=== PATIENT | male | born 1980 | race African-American/Black ===

== ENCOUNTER 2017-07-17 02:46 | Inpatient (IN) | payer OTHER ==
[~2017-07-17] VITALS: Ht 177.8 cm; Wt 73.3 kg
[2017-07-17 05:12] LABS: HEMOGLOBIN 12.5 g/dL (13.7-18.0); WHITE BLOOD COUNT 9.2 x10^3/uL (3.4-10)
[2017-07-17 05:48] LABS: ABG COLLECTION SITE NOT DOCUMENTED
[2017-07-17 05:51] LABS: ASPARTATE AMINO TRANSFERASE 18 U/L (15-37); BLOOD UREA NITROGEN 5 mg/dL (7-18)
[2017-07-17 05:52] LABS: ACETAMINOPHEN < 2 mcg/mL (10-30)
[2017-07-17 05:55] LABS: DAU SCREEN DISCLAIMER
[2017-07-17] MEDS ORDERED: PROPOFOL 100 ML IV ONE (06:12)
[2017-07-17] MEDS ORDERED: PROPOFOL 100 ML IV PRN (06:30)
[2017-07-17] MEDS ORDERED: SODIUM CHLORIDE 0.9% 1,000 ML IV ONE (06:48)
[2017-07-17] MEDS ORDERED: SODIUM CHLORIDE FLUSH 10ML SYR IVF PRN (07:00)
[2017-07-17] MEDS ORDERED: LORazepam 10 MG in SODIUM CHLORIDE 0.9% 245 ML IV PRN (07:30)
[2017-07-17] MEDS ORDERED: HALOPERIDOL 5 MG/ML ONE (07:30)
[2017-07-17] MEDS ORDERED: DIAZEPAM 5 MG/ML, 2ML IV SCH (07:30)
[2017-07-17] MEDS ORDERED: LORazepam 2 MG/ML, 1ML ONE (07:30)
[2017-07-17] MEDS ORDERED: NS + 20MEQ KCL 1,000 ML IV SCH (07:36)
[2017-07-17] MEDS ORDERED: LABETALOL 5MG/ML, 20ML IVPush PRN ×2 (08:00→20:00)
[2017-07-17] MEDS ORDERED: SENNOSIDES 8.8 MG/5 ML ORAL SOL NG PRN ×2 (08:00→20:00)
[2017-07-17] MEDS ORDERED: HALOPERIDOL 5 MG/ML IV ONE ×2 (08:00→10:00)
[2017-07-17] MEDS ORDERED: BISACODYL 10 MG SUPP PR PRN ×2 (08:00→20:00)
[2017-07-17] MEDS ORDERED: LIDOCAINE-MPF 1%, 2ML ENDO PRN (08:00)
[2017-07-17] MEDS ORDERED: LORazepam 2 MG/ML, 1ML IVPush ONE (08:00)
[2017-07-17] MEDS ORDERED: MORPHINE SULFATE 4 MG/ML, 1ML IVPush PRN (08:00)
[2017-07-17] MEDS ORDERED: LACTULOSE 20 GM/30 ML UDC NG PRN ×2 (08:00→20:00)
[2017-07-17] MEDS ORDERED: ACETAMINOPHEN 325 MG TABLET PO PRN ×2 (08:00→20:00)
[2017-07-17] MEDS ORDERED: PHARMACY MAY ADJ FOR RENAL FX MC SCH (08:00)
[2017-07-17] MEDS ORDERED: POLYETHYLENE GLYCOL 17 GM PACKET PO PRN ×2 (08:00→20:00)
[2017-07-17] MEDS ORDERED: TEMAZEPAM 15 MG CAPSULE PO PRN (08:00)
[2017-07-17] MEDS ORDERED: SENNA/DOCUSATE TABLET NG PRN ×2 (08:00→20:00)
[2017-07-17] MEDS ORDERED: FAMOTIDINE 20 MG/2 ML IV SCH (08:00)
[2017-07-17] MEDS ORDERED: OXYcodone IR 5MG TABLET PO PRN (08:00)
[2017-07-17] MEDS: PANTOPRAZOLE 40 MG IV IVPush SCH (09:41)
[2017-07-17] MEDS: ENOXAPARIN 40 MG/0.4 ML SQ SCH (09:53)
[2017-07-17] MEDS: QUETIAPINE 25MG TABLET PO SCH ×3 (09:53→23:07)
[2017-07-17] MEDS ORDERED: DIAZEPAM 5 MG TABLET PO ONE (10:00)
[2017-07-17] MEDS ORDERED: DIAZEPAM 10 MG TABLET PO ONE (10:00)
[2017-07-17] MEDS ORDERED: HALOPERIDOL 5 MG/ML IM PRN (10:00)
[2017-07-17] MEDS: POTASSIUM CHLORIDE 20 MEQ, MAGNESIUM SULFATE 1 GM, THIAMINE 100 MG, FOLIC ACID 1 MG, MV... IV SCH (10:39)
[2017-07-17] MEDS: LEVETIRACETAM 1,000 MG in SODIUM CHLORIDE 0.9% 100 ML IV SCH ×2 (10:40→20:18)
[2017-07-17] MEDS: SENNA/DOCUSATE TABLET PO SCH (10:51)
[2017-07-17] MEDS: ALBUTEROL/IPRATROPIUM 2.5MG/0.5MG, 3 ML INLINE SCH ×5 (11:48→21:58)
[2017-07-17] MEDS: DEXAMETHASONE 4 MG/ML, 1ML IVPush SCH ×3 (13:23→21:12)
[2017-07-17] MEDS: AMPICILLIN/SULBACTAM 3 GM in SODIUM CHLORIDE 0.9% 100 ML IV SCH ×2 (13:24→20:29)
[2017-07-17] MEDS ORDERED: DIAZEPAM 5 MG/ML, 10ML VIAL IV SCH (13:30)
[2017-07-17] MEDS: PROPOFOL 100 ML IV PRN ×3 (14:07→20:32)
[2017-07-17 15:33] VITALS: BP 122/80
[2017-07-17] MEDS: DIAZEPAM 5 MG/ML, 10ML VIAL IV SCH ×2 (16:45→21:15)
[2017-07-17] MEDS ORDERED: MIDAZOLAM 1 MG/ML, 5ML ONE (16:46)
[2017-07-17] MEDS ORDERED: PROPOFOL 10 MG/ML, 20ML ONE (16:46)
[2017-07-17] MEDS ORDERED: SUCCINYLCHOLINE 20 MG/ML, 10ML ONE (16:46)
[2017-07-17] MEDS ORDERED: PROPOFOL 10 MG/ML, 50ML ONE (16:46)
[2017-07-17] MEDS ORDERED: ETOMIDATE 40 MG/20 ML ONE (16:46)
[2017-07-17] MEDS: DIAZEPAM 5 MG/ML, 2ML IV PRN (18:17)
[2017-07-17] MEDS: FENTANYL PF 100 MCG/2ML IVPush PRN (20:07)
[2017-07-17] MEDS: LORazepam 2 MG/ML, 1ML IVPush PRN (20:07)
[2017-07-17] MEDS: NS + 20MEQ KCL 1,000 ML IV SCH (20:21)
[2017-07-17] MEDS: SCOPOLAMINE PATCH, 1MG PATCH.TD72 TD SCH (21:01)
[2017-07-17] MEDS ORDERED: MAGNESIUM SULFATE 4 GM in SODIUM CHLORIDE 0.9% 100 ML IV ONE (23:00)
[2017-07-17] MEDS ORDERED: MAGNESIUM SULFATE PMX 4GM/100M 100 ML IV ONE (23:30)
[2017-07-18] MEDS: PROPOFOL 100 ML IV PRN ×5 (00:28→19:58)
[2017-07-18] MEDS: DIAZEPAM 5 MG/ML, 10ML VIAL IV SCH ×6 (01:32→21:35)
[2017-07-18] MEDS: ALBUTEROL/IPRATROPIUM 2.5MG/0.5MG, 3 ML INLINE SCH ×6 (02:17→22:56)
[2017-07-18] MEDS: DIAZEPAM 5 MG/ML, 2ML IV PRN (03:19)
[2017-07-18 04:06] LABS: ABG COLLECTION SITE RIGHT RADIAL; COLLATERAL CIRCULATION TESTING NORMAL
[2017-07-18] MEDS: NS + 20MEQ KCL 1,000 ML IV SCH ×2 (04:10→19:38)
[2017-07-18] MEDS: AMPICILLIN/SULBACTAM 3 GM in SODIUM CHLORIDE 0.9% 100 ML IV SCH ×3 (04:10→21:31)
[2017-07-18] MEDS: DEXAMETHASONE 4 MG/ML, 1ML IVPush SCH ×3 (04:10→17:29)
[2017-07-18 05:19] VITALS: BP 117/76
[2017-07-18 06:05] LABS: HEMATOCRIT 31.7 % (39.2-51.8); WHITE BLOOD COUNT 10.8 x10^3/uL (3.4-10)
[2017-07-18 06:17] LABS: ASPARTATE AMINO TRANSFERASE 21 U/L (15-37); BLOOD UREA NITROGEN 4 mg/dL (7-18)
[2017-07-18] MEDS: PANTOPRAZOLE 40 MG IV IVPush SCH (07:43)
[2017-07-18] MEDS: LEVETIRACETAM 1,000 MG in SODIUM CHLORIDE 0.9% 100 ML IV SCH ×2 (07:53→20:07)
[2017-07-18] MEDS: ENOXAPARIN 40 MG/0.4 ML SQ SCH (07:57)
[2017-07-18] MEDS: QUETIAPINE 25MG TABLET PO SCH ×2 (07:57→17:29)
[2017-07-18] MEDS: SENNA/DOCUSATE TABLET PO SCH (08:09)
[2017-07-18] MEDS: POTASSIUM CHLORIDE 20 MEQ, MAGNESIUM SULFATE 1 GM, THIAMINE 100 MG, FOLIC ACID 1 MG, MV... IV SCH (09:21)
[2017-07-18] MEDS ORDERED: QUETIAPINE 25MG TABLET PO ONE (09:30)
[2017-07-18] MEDS: LORazepam 2 MG/ML, 1ML IVPush PRN ×2 (11:36→23:41)
[2017-07-18] MEDS ORDERED: LABETALOL 5MG/ML, 20ML IVPush PRN (17:30)
[2017-07-18] MEDS ORDERED: PHARMACY MAY ADJ FOR RENAL FX MC SCH (17:30)
[2017-07-18] MEDS ORDERED: BISACODYL 10 MG SUPP PR PRN (17:30)
[2017-07-18] MEDS ORDERED: LACTULOSE 20 GM/30 ML UDC NG PRN (17:30)
[2017-07-18] MEDS ORDERED: POLYETHYLENE GLYCOL 17 GM PACKET PO PRN (17:30)
[2017-07-18] MEDS ORDERED: ACETAMINOPHEN 325 MG TABLET PO PRN (17:30)
[2017-07-18] MEDS ORDERED: OXYcodone IR 5MG TABLET PO PRN (17:30)
[2017-07-18] MEDS ORDERED: FUROSEMIDE 20 MG/2 ML IV ONE (18:00)
[2017-07-19] MEDS: PROPOFOL 100 ML IV PRN ×6 (00:55→22:49)
[2017-07-19] MEDS: QUETIAPINE 25MG TABLET PO SCH ×3 (01:04→17:54)
[2017-07-19] MEDS: DIAZEPAM 5 MG/ML, 10ML VIAL IV SCH ×6 (01:05→22:31)
[2017-07-19] MEDS: ALBUTEROL/IPRATROPIUM 2.5MG/0.5MG, 3 ML INLINE SCH ×6 (03:19→23:27)
[2017-07-19] MEDS: NS + 20MEQ KCL 1,000 ML IV SCH (03:21)
[2017-07-19 04:00] VITALS: BP 122/80
[2017-07-19 04:27] LABS: HEMATOCRIT 33.9 % (39.2-51.8); HEMOGLOBIN 11.1 g/dL (13.7-18.0); WHITE BLOOD COUNT 11.1 x10^3/uL (3.4-10)
[2017-07-19 04:40] LABS: BLOOD UREA NITROGEN 6 mg/dL (7-18)
[2017-07-19] MEDS: AMPICILLIN/SULBACTAM 3 GM in SODIUM CHLORIDE 0.9% 100 ML IV SCH ×3 (05:23→21:10)
[2017-07-19 05:42] LABS: ABG COLLECTION SITE LEFT RADIAL; COLLATERAL CIRCULATION TESTING NORMAL
[2017-07-19] MEDS: LEVETIRACETAM 1,000 MG in SODIUM CHLORIDE 0.9% 100 ML IV SCH ×2 (07:57→19:57)
[2017-07-19] MEDS ORDERED: LORazepam 2 MG/ML, 1ML IVPush ONE (08:00)
[2017-07-19] MEDS ORDERED: MIDAZOLAM 1 MG/ML, 5ML ONE ×3 (08:01→13:29)
[2017-07-19] MEDS: PANTOPRAZOLE 40 MG IV IVPush SCH (08:09)
[2017-07-19] MEDS: ENOXAPARIN 40 MG/0.4 ML SQ SCH (08:09)
[2017-07-19] MEDS ORDERED: MIDAZOLAM 1 MG/ML, 5ML IVPush PRN (08:30)
[2017-07-19] MEDS: SENNA/DOCUSATE TABLET PO SCH (09:38)
[2017-07-19] MEDS: MIDAZOLAM 10MG/2 ML IVPush PRN ×2 (11:36→13:36)
[2017-07-19] MEDS: FOLIC ACID 1 MG TABLET PO SCH (13:52)
[2017-07-19] MEDS: THIAMINE 100MG TABLET PO SCH (13:52)
[2017-07-19] MEDS: MIDAZOLAM HCL 25 MG in SODIUM CHLORIDE 0.9% 245 ML IV PRN (15:13)
[2017-07-20] MEDS: MIDAZOLAM HCL 25 MG in SODIUM CHLORIDE 0.9% 245 ML IV PRN ×6 (00:08→18:17)
[2017-07-20] MEDS: DIAZEPAM 5 MG/ML, 10ML VIAL IV SCH ×6 (01:56→22:28)
[2017-07-20] MEDS: QUETIAPINE 25MG TABLET PO SCH ×3 (01:56→17:41)
[2017-07-20] MEDS: PROPOFOL 100 ML IV PRN ×6 (03:19→22:44)
[2017-07-20 04:00] VITALS: BP 121/73
[2017-07-20] MEDS: ALBUTEROL/IPRATROPIUM 2.5MG/0.5MG, 3 ML INLINE SCH ×2 (04:05→07:18)
[2017-07-20 04:38] LABS: ABG COLLECTION SITE RIGHT RADIAL; COLLATERAL CIRCULATION TESTING NORMAL
[2017-07-20 04:38] LABS: HEMATOCRIT 33.7 % (39.2-51.8); HEMOGLOBIN 11.4 g/dL (13.7-18.0); WHITE BLOOD COUNT 10.6 x10^3/uL (3.4-10)
[2017-07-20] MEDS: AMPICILLIN/SULBACTAM 3 GM in SODIUM CHLORIDE 0.9% 100 ML IV SCH ×3 (04:45→19:45)
[2017-07-20 04:46] LABS: BLOOD UREA NITROGEN 8 mg/dL (7-18)
[2017-07-20] MEDS: LORazepam 2 MG/ML, 1ML IVPush PRN (08:02)
[2017-07-20] MEDS: PANTOPRAZOLE 40 MG IV IVPush SCH (08:07)
[2017-07-20] MEDS: ENOXAPARIN 40 MG/0.4 ML SQ SCH (08:07)
[2017-07-20] MEDS: LEVETIRACETAM 1,000 MG in SODIUM CHLORIDE 0.9% 100 ML IV SCH ×2 (08:07→20:02)
[2017-07-20] MEDS ORDERED: MAGNESIUM SULFATE PMX 2GM/50ML 50 ML IV ONE (08:30)
[2017-07-20] MEDS ORDERED: MIDAZOLAM 1 MG/ML, 5ML ONE (09:50)
[2017-07-20] MEDS: MIDAZOLAM 10MG/2 ML IVPush PRN (09:51)
[2017-07-20] MEDS: MULTIVITAMIN 1 TABLET PO SCH (09:59)
[2017-07-20] MEDS: POTASSIUM CHLORIDE 10% 40 MEQ/30 ML UDC NG SCH ×2 (09:59→19:46)
[2017-07-20] MEDS: THIAMINE 100MG TABLET PO SCH (10:00)
[2017-07-20] MEDS: SENNA/DOCUSATE TABLET PO SCH (10:00)
[2017-07-20] MEDS: FOLIC ACID 1 MG TABLET PO SCH (10:00)
[2017-07-20] MEDS ORDERED: ALBUTEROL/IPRATROPIUM 2.5MG/0.5MG, 3 ML INLINE PRN (12:00)
[2017-07-20] MEDS: SCOPOLAMINE PATCH, 1MG PATCH.TD72 TD SCH (19:45)
[2017-07-20] MEDS: MIDAZOLAM HCL 100 MG in SODIUM CHLORIDE 0.9% 230 ML IV PRN (20:43)
[2017-07-20] MEDS: FENTANYL PF 100 MCG/2ML IVPush PRN (22:32)
[2017-07-21] MEDS: QUETIAPINE 25MG TABLET PO SCH ×4 (00:35→23:59)
[2017-07-21] MEDS: PROPOFOL 100 ML IV PRN ×7 (02:31→23:58)
[2017-07-21] MEDS: DIAZEPAM 5 MG/ML, 10ML VIAL IV SCH ×6 (03:43→23:58)
[2017-07-21] MEDS: MIDAZOLAM HCL 100 MG in SODIUM CHLORIDE 0.9% 230 ML IV PRN ×3 (03:43→21:49)
[2017-07-21 04:00] VITALS: BP 113/69
[2017-07-21] MEDS: FENTANYL PF 100 MCG/2ML IVPush PRN ×4 (04:25→20:06)
[2017-07-21] MEDS: AMPICILLIN/SULBACTAM 3 GM in SODIUM CHLORIDE 0.9% 100 ML IV SCH ×3 (04:27→21:46)
[2017-07-21 04:50] LABS: ABG COLLECTION SITE LEFT RADIAL; COLLATERAL CIRCULATION TESTING NORMAL; HEMATOCRIT 35.3 % (39.2-51.8); HEMOGLOBIN 12.2 g/dL (13.7-18.0); WHITE BLOOD COUNT 10.4 x10^3/uL (3.4-10)
[2017-07-21 05:11] LABS: BLOOD UREA NITROGEN 8 mg/dL (7-18)
[2017-07-21] MEDS ORDERED: MAGNESIUM SULFATE PMX 2GM/50ML 50 ML IV ONE (06:30)
[2017-07-21] MEDS: LEVETIRACETAM 1,000 MG in SODIUM CHLORIDE 0.9% 100 ML IV SCH ×2 (07:32→19:30)
[2017-07-21] MEDS: PANTOPRAZOLE 40 MG IV IVPush SCH (07:32)
[2017-07-21] MEDS: ENOXAPARIN 40 MG/0.4 ML SQ SCH (07:39)
[2017-07-21] MEDS: POTASSIUM CHLORIDE 10% 40 MEQ/30 ML UDC NG SCH ×2 (09:22→20:06)
[2017-07-21] MEDS: MULTIVITAMIN 1 TABLET PO SCH (09:23)
[2017-07-21] MEDS: SENNA/DOCUSATE TABLET PO SCH (09:23)
[2017-07-21] MEDS: THIAMINE 100MG TABLET PO SCH (09:23)
[2017-07-21] MEDS: FOLIC ACID 1 MG TABLET PO SCH (09:23)
[2017-07-21] MEDS ORDERED: SODIUM CHLORIDE 0.9%, 500ML IVBOLUS ONE (13:00)
[2017-07-21] MEDS: LORazepam 2 MG/ML, 1ML IVPush PRN (16:24)
[2017-07-22] MEDS: FENTANYL PF 100 MCG/2ML IVPush PRN ×4 (00:37→06:26)
[2017-07-22] MEDS: LORazepam 2 MG/ML, 1ML IVPush PRN (00:37)
[2017-07-22] MEDS ORDERED: MIDAZOLAM 1 MG/ML, 5ML ONE (02:17)
[2017-07-22] MEDS: MIDAZOLAM 1 MG/ML, 5ML IVPush PRN ×3 (02:24→06:26)
[2017-07-22] MEDS: PROPOFOL 100 ML IV PRN ×2 (03:36→08:11)
[2017-07-22] MEDS: DIAZEPAM 5 MG/ML, 10ML VIAL IV SCH ×6 (03:36→23:30)
[2017-07-22 04:00] VITALS: BP 100/60
[2017-07-22] MEDS: AMPICILLIN/SULBACTAM 3 GM in SODIUM CHLORIDE 0.9% 100 ML IV SCH ×3 (04:28→20:27)
[2017-07-22 04:36] LABS: ABG COLLECTION SITE LEFT RADIAL; COLLATERAL CIRCULATION TESTING NORMAL
[2017-07-22 04:45] LABS: HEMATOCRIT 33.5 % (39.2-51.8); HEMOGLOBIN 11.3 g/dL (13.7-18.0); WHITE BLOOD COUNT 10.4 x10^3/uL (3.4-10)
[2017-07-22 04:54] LABS: BLOOD UREA NITROGEN 7 mg/dL (7-18)
[2017-07-22] MEDS ORDERED: MAGNESIUM SULFATE PMX 4GM/100M 100 ML IV ONE (07:00)
[2017-07-22] MEDS: LEVETIRACETAM 1,000 MG in SODIUM CHLORIDE 0.9% 100 ML IV SCH ×2 (08:10→19:29)
[2017-07-22] MEDS: MIDAZOLAM HCL 100 MG in SODIUM CHLORIDE 0.9% 230 ML IV PRN (08:11)
[2017-07-22] MEDS: THIAMINE 100MG TABLET PO SCH (08:12)
[2017-07-22] MEDS: SENNA/DOCUSATE TABLET PO SCH (08:12)
[2017-07-22] MEDS: QUETIAPINE 25MG TABLET PO SCH (08:12)
[2017-07-22] MEDS: MULTIVITAMIN 1 TABLET PO SCH (08:12)
[2017-07-22] MEDS: FOLIC ACID 1 MG TABLET PO SCH (08:12)
[2017-07-22] MEDS: POTASSIUM CHLORIDE 10% 40 MEQ/30 ML UDC NG SCH ×2 (08:13→20:27)
[2017-07-22] MEDS: PANTOPRAZOLE 40 MG IV IVPush SCH (08:13)
[2017-07-22] MEDS: ENOXAPARIN 40 MG/0.4 ML SQ SCH (08:13)
[2017-07-23] MEDS: DIAZEPAM 5 MG/ML, 10ML VIAL IV SCH ×2 (03:42→08:46)
[2017-07-23] MEDS: AMPICILLIN/SULBACTAM 3 GM in SODIUM CHLORIDE 0.9% 100 ML IV SCH ×3 (04:26→20:38)
[2017-07-23 04:45] LABS: ABG COLLECTION SITE LEFT RADIAL; COLLATERAL CIRCULATION TESTING NORMAL; FIO2 ROOM AIR %; HEMATOCRIT 35.4 % (39.2-51.8); HEMOGLOBIN 12.2 g/dL (13.7-18.0); WHITE BLOOD COUNT 11.2 x10^3/uL (3.4-10)
[2017-07-23 04:56] LABS: BLOOD UREA NITROGEN 8 mg/dL (7-18)
[2017-07-23] MEDS: ENOXAPARIN 40 MG/0.4 ML SQ SCH (08:46)
[2017-07-23] MEDS: LEVETIRACETAM 1,000 MG in SODIUM CHLORIDE 0.9% 100 ML IV SCH (08:46)
[2017-07-23] MEDS: POTASSIUM CHLORIDE 10% 40 MEQ/30 ML UDC NG SCH (08:47)
[2017-07-23] MEDS: SENNA/DOCUSATE TABLET PO SCH (08:47)
[2017-07-23] MEDS: MULTIVITAMIN 1 TABLET PO SCH (08:47)
[2017-07-23] MEDS: FOLIC ACID 1 MG TABLET PO SCH (08:48)
[2017-07-23] MEDS: THIAMINE 100MG TABLET PO SCH (08:48)
[2017-07-23] MEDS ORDERED: DIAZEPAM 5 MG/ML, 2ML IV PRN (09:00)
[2017-07-23] MEDS: CHLORDIAZEPOXIDE 25 MG CAPSULE PO SCH ×2 (09:25→20:37)
[2017-07-23] MEDS ORDERED: LACTULOSE 20 GM/30 ML UDC NG PRN (13:00)
[2017-07-23 13:22] VITALS: BP 110/75
[2017-07-23 18:42] VITALS: BP 111/72
[2017-07-24 01:04] VITALS: BP 117/76
[2017-07-24] MEDS: AMPICILLIN/SULBACTAM 3 GM in SODIUM CHLORIDE 0.9% 100 ML IV SCH (04:58)
[2017-07-24 06:58] VITALS: BP 105/69
[2017-07-24] MEDS ORDERED: ENOXAPARIN 40 MG/0.4 ML SQ SCH (08:00)
[2017-07-24] MEDS: MULTIVITAMIN 1 TABLET PO SCH (08:45)
[2017-07-24] MEDS: THIAMINE 100MG TABLET PO SCH (08:46)
[2017-07-24] MEDS: FOLIC ACID 1 MG TABLET PO SCH (08:46)
[2017-07-24] MEDS: CHLORDIAZEPOXIDE 25 MG CAPSULE PO SCH (08:46)
[2017-07-24] MEDS ORDERED: SENNA/DOCUSATE TABLET PO SCH (09:00)
[2017-07-24 13:45] VITALS: BP 113/77
== END 2017-07-24 14:25 | disposition home or self-care (01) | DRG 207 ==
LOC: ED 06:27 → EDIP 06:34 → CCU 08:51 → 4NOR 07-23 13:15
PROVIDERS: ADMIT Hospitalist; ATTEND Hospitalist
PROC: 0BH17EZ Insertion of Endotracheal Airway into Trachea, Via Natural or Artificial Opening (ICD-10-PCS; principal; 2017-07-17)
PROC: 5A1955Z Respiratory Ventilation, Greater than 96 Consecutive Hours (ICD-10-PCS; 2017-07-17)
DX: J96.01 Acute respiratory failure with hypoxia (principal); J69.0 Pneumonitis due to inhalation of food and vomit; G62.81 Critical illness polyneuropathy; G93.41 Metabolic encephalopathy; K92.0 Hematemesis; F10.231 Alcohol dependence with withdrawal delirium; Z99.11 Dependence on respirator [ventilator] status; G40.901 Epilepsy, unspecified, not intractable, with status epilepticus; D64.9 Anemia, unspecified; E83.42 Hypomagnesemia; E87.6 Hypokalemia; F12.90 Cannabis use, unspecified, uncomplicated; F17.210 Nicotine dependence, cigarettes, uncomplicated; I51.7 Cardiomegaly; Z78.1 Physical restraint status
CPT/HCPCS: 31500; 36415; 36600; 71010; 80048; 80053; 80307; 80329; 81003; 82803; 83735; 84100; 84443; 84478; 85025; 87070; 87081; 87205; 93005; 94002; 94003; 94150; 94640; 96374; 96375; J0295; J1100; J1650; J1953; J2250; J2704; J3010; J3360; J3411; J3475; J3480; J7620; C9113; G0479; G0480; J0330; J1630; J1940; J2060; J7030; J7050; S0028